=== PATIENT | male | born 1970 | race Caucasian/White ===

== ENCOUNTER 2021-10-18 09:29 | Emergency (ER) | payer SELFPAY ==
[~2021-10-18] VITALS: Ht 172.7 cm; Wt 109.5 kg
[2021-10-18 10:52] LABS: RSV AMPLIFICATION NEGATIVE (NEGATIVE)
[2021-10-18 11:33] VITALS: BP 138/80
== END 2021-10-18 11:34 | disposition home or self-care (01) ==
LOC: M ED 09:29
DX: U07.1 COVID-19 (principal); E11.9 Type 2 diabetes mellitus without complications; I10 Essential (primary) hypertension; J45.909 Unspecified asthma, uncomplicated; F17.200 Nicotine dependence, unspecified, uncomplicated

== ENCOUNTER → 2022-07-02 | Outpatient (REF) | LOC: M LAB 10:01 | PROVIDERS: ATTEND Nurse Practitioner Adult Health | DX: Z02.1 Encounter for pre-employment examination (principal) ==

== ENCOUNTER 2022-08-01 09:17 | Emergency (ER) | payer SELFPAY ==
[~2022-08-01] VITALS: Ht 172.7 cm; Wt 104.6 kg
[2022-08-01] MEDS ORDERED: DICL20GE TP (10:23)
[2022-08-01] MEDS ORDERED: IBUP-1022 PO (10:24)
[2022-08-01 10:32] VITALS: BP 128/82
[2022-08-01] MEDS ORDERED: KETOROLAC 60MG 2ML VIAL IM ONE (10:45)
== END 2022-08-01 10:55 | disposition home or self-care (01) ==
LOC: M ED 09:17
DX: M25.521 Pain in right elbow (principal)
CPT/HCPCS: 73080; 96372; 99284; J1885